=== PATIENT | female | born 1985 | race Hispanic/Latino ===

== ENCOUNTER 2025-05-24 13:17 | Outpatient (CLI) | payer MEDICARE | END 2025-05-24 13:18 | disposition home or self-care (01) | LOC: CSHULT 13:17 | PROVIDERS: ATTEND Internal Medicine Hematology & Oncology | DX: C50.412 Malignant neoplasm of upper-outer quadrant of left female breast (principal); C79.51 Secondary malignant neoplasm of bone; D50.8 Other iron deficiency anemias; I34.0 Nonrheumatic mitral (valve) insufficiency | CPT/HCPCS: 93306 ==